=== PATIENT | female | born 1985 | race African-American/Black ===

== ENCOUNTER 2016-08-16 11:14 | Emergency (ER) | payer OTHER ==
[~2016-08-16] VITALS: Ht 165.1 cm; Wt 68.0 kg
[~2016-08-16 11:14] MED LIST: ACETAMINOPHEN325 M1 PO; ALBUTEROL INHAL17 GM IH; APAP500 PO; CLEOCIN HCL150 MG PO; DERMOPLAST SPRA56 ML; EXCEDRIN CAPLE1 EACH PO; FLAGYL500 MG PO; FLEXERIL PO; IBUPROFEN 600600 M1 PO; IBUPROFEN 800800 M1 PO; LANOLIN56 GM; NAPROSYN500 MG PO; NORCO 5-325 TA1 EACH PO; PEPCID20 MG PO; PHENERGAN 25 MG25 M1; PRENATAL PO; TRINATE TABLET1 TAB PO; TUCKS MEDICATE1 EAC1; TUCKS MEDICATE1 EAC1 TOP; VISTARIL; ZOFRAN ODT4 MG PO
[2016-08-16] MEDS ORDERED: IRON325 PO (11:26)
[2016-08-16] MEDS ORDERED: EXCEDRIN CAPLE1 EACH PO (11:26)
[2016-08-16] MEDS ORDERED: FLONASE 0.05%50 MCG NASAL (12:19)
[2016-08-16] MEDS ORDERED: SUDAFED PE10 M2 PO (12:19)
[2016-08-16] MEDS ORDERED: CLARITIN10 MG PO (12:19)
[2016-08-16 12:27] VITALS: BP 129/91
== END 2016-08-16 12:20 | disposition home or self-care (01) ==
LOC: ER 11:14
DX: J30.9 Allergic rhinitis, unspecified (principal); R51 Headache; J34.89 Other specified disorders of nose and nasal sinuses; M06.9 Rheumatoid arthritis, unspecified; Z88.1 Allergy status to other antibiotic agents; Z91.041 Radiographic dye allergy status